=== PATIENT | female | born 1995 | race African-American/Black ===

== ENCOUNTER 2018-04-08 14:21 | Emergency (ER) | payer OTHER ==
[~2018-04-08] VITALS: Ht 160 cm; Wt 79.4 kg
[~2018-04-08 14:21] MED LIST: TRINATE TABLET1 TAB PO
[2018-04-08 14:52] LABS: URINE CLARITY CLEAR; URINE COLOR YELLOW; URINE GLUCOSE-RANDOM* NEGATIVE (Negative); URINE PROTEIN (DIPSTICK) NEGATIVE (Negative); URINE SPECIFIC GRAVITY 1.015 (1.005-1.035)
[2018-04-08 14:53] LABS: URINE BILIRUBIN NEGATIVE (Negative); URINE BLOOD TRACE (Negative); URINE KETONES NEGATIVE (Negative); URINE LEUKOCYTES-REFLEX 1+ (Negative); URINE NITRITE-REFLEX NEGATIVE (Negative); URINE UROBILINOGEN 0.2 E.U./dl (0.2-1.0)
[2018-04-08 14:59] LABS: SQUAMOUS 4-10 Moderate /LPF (0-3)
[2018-04-08 15:01] LABS: BACTERIA-REFLEX 1-9 Few /HPF (None Seen); CASTS None Seen /LPF (None Seen); CRYSTALS None Seen /LPF (None Seen); URINE RBC 0-2 Rare /HPF (0-2)
[2018-04-08 15:02] LABS: URINE WBC-REFLEX 0-5 Rare /HPF (0-5)
[2018-04-08 16:16] VITALS: BP 126/78
== END 2018-04-08 16:18 | disposition home or self-care (01) ==
LOC: ER 14:21
PROVIDERS: Physician Assistant
DX: A59.01 Trichomonal vulvovaginitis (principal); F17.210 Nicotine dependence, cigarettes, uncomplicated